=== PATIENT | male | born 1965 | race Hispanic/Latino ===

== ENCOUNTER → 2018-01-30 | Outpatient (CLI) | payer BC | LOC: SLEEP 20:32 | PROVIDERS: ATTEND Family Medicine | DX: G47.33 Obstructive sleep apnea (adult) (pediatric) (principal) | CPT/HCPCS: 95810 ==

== ENCOUNTER → 2024-10-05 | Day surgery (SDC) | payer BC ==
[~2024-10-05] MED LIST: FENTANYL CITRATE/PF 100MCG/2 ML INJ ONE; LIDOCAINE HCL 2% LOCAL INJ 5 ML SDV VIAL INJ ONE; METOCLOPRAMIDE HCL 10 MG/2ML VIAL ONE; PROPOFOL IV EMULSION 50 ML IV ONE
[2024-10-05] MEDS: LACTATED RINGER'S 1,000 ML ONE (08:43)
[2024-10-05 10:26] VITALS: TEMP 97
[2024-10-05 10:46] VITALS: BP 110/80; PULSE 68; RESP 18; O2SAT 99
== END | disposition home or self-care (01) ==
LOC: OR 08:13
PROVIDERS: ATTEND Internal Medicine Gastroenterology
DX: Z12.11 Encounter for screening for malignant neoplasm of colon (principal); D12.4 Benign neoplasm of descending colon; D12.8 Benign neoplasm of rectum; K29.70 Gastritis, unspecified, without bleeding; K21.00 Gastro-esophageal reflux disease with esophagitis, without bleeding; K22.10 Ulcer of esophagus without bleeding; K22.89 Other specified disease of esophagus; K31.89 Other diseases of stomach and duodenum; K57.30 Diverticulosis of large intestine without perforation or abscess without bleeding; K64.8 Other hemorrhoids; Z88.0 Allergy status to penicillin; Z01.810 Encounter for preprocedural cardiovascular examination
CPT/HCPCS: 43239; 43450; 45385; 93005; J2003; J2470; J2704; J2765; J3010; J7121; 45378